=== PATIENT | female | born 1935 | race Two or more races ===

== ENCOUNTER → 2017-05-05 | Outpatient (CLI) | payer MEDICARE, OTHER ==
[~2017-05-05] VITALS: Ht 160 cm; Wt 72.5 kg
[~2017-05-05] MED LIST: ADV250 IH; ASPI-556 PO; AUD NEB; AZELASTINE; BENZ-51 PO; CARV6 PO; FLUT16H NASAL; FURO20 PO; KDUR20 PO; LEVO25TA4 PO; LIDO700A30 TP; LIDOCAINE HCL 4% 50 ML SOLUTION TP ONE; LORA10TA7 PO; LOSA25TA21 PO; MET500 PO; MONT10TA21 PO; MUPIROCIN CALCIUM 2% 22 GM OINTMENT TP ONE; PRAV40TA4 PO; SUVO10TA PO; TRAM50TA4 PO; UMEC62.5 IH
[2017-05-05 13:33] VITALS: BP 152/74
== END | disposition home or self-care (01) ==
LOC: SRCNTR 13:19
PROVIDERS: ATTEND Internal Medicine
DX: J44.0 Chronic obstructive pulmonary disease with (acute) lower respiratory infection (principal); C7A.090 Malignant carcinoid tumor of the bronchus and lung; C41.0 Malignant neoplasm of bones of skull and face; E03.9 Hypothyroidism, unspecified; I10 Essential (primary) hypertension; J18.9 Pneumonia, unspecified organism; Z79.82 Long term (current) use of aspirin; Z88.0 Allergy status to penicillin; Z88.2 Allergy status to sulfonamides
CPT/HCPCS: G0463

== ENCOUNTER → 2017-06-20 | Outpatient (CLI) | payer MEDICARE, OTHER ==
[~2017-06-20] VITALS: Ht 160 cm; Wt 73.0 kg
[~2017-06-20] MED LIST changes: -LIDOCAINE HCL 4% 50 ML SOLUTION TP ONE; -MUPIROCIN CALCIUM 2% 22 GM OINTMENT TP ONE
[2017-06-20 13:24] VITALS: BP 182/102
== END | disposition home or self-care (01) ==
LOC: SRCNTR 12:56
PROVIDERS: ATTEND Internal Medicine
DX: C34.12 Malignant neoplasm of upper lobe, left bronchus or lung (principal); C44.40 Unspecified malignant neoplasm of skin of scalp and neck; J44.0 Chronic obstructive pulmonary disease with (acute) lower respiratory infection; J18.9 Pneumonia, unspecified organism; I10 Essential (primary) hypertension; E03.9 Hypothyroidism, unspecified; J15.1 Pneumonia due to Pseudomonas
CPT/HCPCS: G0463

== ENCOUNTER → 2017-07-05 | Outpatient (CLI) | payer MEDICARE, OTHER ==
[~2017-07-05] VITALS: Ht 160 cm; Wt 73.0 kg
[2017-07-05 14:51] VITALS: BP 170/80
== END | disposition home or self-care (01) ==
LOC: SRCNTR 14:40
PROVIDERS: ATTEND Internal Medicine
DX: J44.0 Chronic obstructive pulmonary disease with (acute) lower respiratory infection (principal); J18.9 Pneumonia, unspecified organism; I10 Essential (primary) hypertension; E03.9 Hypothyroidism, unspecified; C7A.090 Malignant carcinoid tumor of the bronchus and lung; C44.42 Squamous cell carcinoma of skin of scalp and neck; Z79.82 Long term (current) use of aspirin; Z88.0 Allergy status to penicillin; Z88.2 Allergy status to sulfonamides
CPT/HCPCS: G0463

== ENCOUNTER → 2017-09-14 | Outpatient (CLI) | payer MEDICARE, OTHER ==
[~2017-09-14] VITALS: Ht 160 cm; Wt 75.0 kg
[~2017-09-14] MED LIST changes: +ALBU90AE PO; +CALC-1038 PO; +CLIN300C3 PO; +PROM5SYR2 PO; +UMEC62.5 PO
[2017-09-14 13:39] VITALS: BP 155/66
== END | disposition home or self-care (01) ==
LOC: SRCNTR 13:29
PROVIDERS: ATTEND Internal Medicine
DX: C7A.090 Malignant carcinoid tumor of the bronchus and lung (principal); E03.9 Hypothyroidism, unspecified; I10 Essential (primary) hypertension; J18.9 Pneumonia, unspecified organism; J44.0 Chronic obstructive pulmonary disease with (acute) lower respiratory infection; Z79.82 Long term (current) use of aspirin; Z88.0 Allergy status to penicillin; Z88.2 Allergy status to sulfonamides; Z98.890 Other specified postprocedural states
CPT/HCPCS: G0463

== ENCOUNTER → 2017-10-26 | Outpatient (CLI) | payer MEDICARE, OTHER ==
[~2017-10-26] VITALS: Ht 160 cm; Wt 75.0 kg
[~2017-10-26] MED LIST changes: -CLIN300C3 PO
[2017-10-26 14:12] VITALS: BP 141/68
== END | disposition home or self-care (01) ==
LOC: SRCNTR 14:02
PROVIDERS: ATTEND Internal Medicine
DX: C7A.090 Malignant carcinoid tumor of the bronchus and lung (principal); I10 Essential (primary) hypertension; E03.9 Hypothyroidism, unspecified; J18.9 Pneumonia, unspecified organism; Z79.82 Long term (current) use of aspirin; Z88.0 Allergy status to penicillin; Z88.2 Allergy status to sulfonamides; Z98.890 Other specified postprocedural states
CPT/HCPCS: G0463

== ENCOUNTER → 2018-02-10 | Outpatient (CLI) | payer MEDICARE, OTHER ==
[~2018-02-10] MED LIST changes: +LOSA25TA16 PO; -LOSA25TA21 PO
[2018-02-10 11:24] VITALS: BP 157/67
== END | disposition home or self-care (01) ==
LOC: SRCNTR 10:54
PROVIDERS: ATTEND Internal Medicine
DX: C7A.090 Malignant carcinoid tumor of the bronchus and lung (principal); I10 Essential (primary) hypertension; E03.9 Hypothyroidism, unspecified
CPT/HCPCS: G0463

== ENCOUNTER → 2018-02-28 | Outpatient (CLI) | payer MEDICARE, OTHER | END | disposition home or self-care (01) | LOC: RADPV 09:57 | PROVIDERS: ATTEND Orthopaedic Surgery Hand Surgery | DX: Z47.1 Aftercare following joint replacement surgery (principal); Z96.612 Presence of left artificial shoulder joint ==

== ENCOUNTER → 2018-05-02 | Outpatient (CLI) | payer MEDICARE, OTHER ==
[~2018-05-02] VITALS: Ht 160 cm; Wt 76.5 kg
[~2018-05-02] MED LIST changes: -LOSA25TA16 PO; +LOSA25TA41 PO
[2018-05-02 10:03] VITALS: BP 153/68
== END | disposition home or self-care (01) ==
LOC: SRCNTR 09:54
PROVIDERS: ATTEND Internal Medicine
DX: J18.9 Pneumonia, unspecified organism (principal); R50.9 Fever, unspecified; I10 Essential (primary) hypertension; E03.9 Hypothyroidism, unspecified; Z88.0 Allergy status to penicillin; Z88.8 Allergy status to other drugs, medicaments and biological substances
CPT/HCPCS: G0463

== ENCOUNTER → 2018-08-08 | Outpatient (CLI) | payer MEDICARE, OTHER ==
[~2018-08-08] VITALS: Ht 160 cm; Wt 78.0 kg
[2018-08-08 11:05] VITALS: BP 147/60
== END | disposition home or self-care (01) ==
LOC: SRCNTR 10:43
PROVIDERS: ATTEND Internal Medicine
DX: I10 Essential (primary) hypertension (principal); E03.9 Hypothyroidism, unspecified
CPT/HCPCS: G0463

== ENCOUNTER → 2019-07-10 | Outpatient (CLI) | payer MEDICARE, OTHER ==
[~2019-07-10] VITALS: Ht 160 cm; Wt 70.5 kg
[~2019-07-10] MED LIST changes: +BETA1TAB18 PO; -LOSA25TA41 PO; +LOSA25TA71 PO; -MET500 PO; +METH500T7 PO
[2019-07-10 10:39] VITALS: BP 135/55
== END | disposition home or self-care (01) ==
LOC: SRCNTR 10:38
PROVIDERS: ATTEND Internal Medicine
DX: D3A.090 Benign carcinoid tumor of the bronchus and lung (principal); R91.8 Other nonspecific abnormal finding of lung field; I10 Essential (primary) hypertension; E03.9 Hypothyroidism, unspecified; C44.40 Unspecified malignant neoplasm of skin of scalp and neck
CPT/HCPCS: G0463

== ENCOUNTER → 2020-08-05 | Outpatient (CLI) | payer MEDICARE, OTHER ==
[~2020-08-05] VITALS: Ht 160 cm; Wt 78.0 kg
[~2020-08-05] MED LIST changes: -ADV250 IH; +FLUT1DIS6 IH; -KDUR20 PO; +LOSA25TA21 PO; -LOSA25TA71 PO; +METH-659 PO; -METH500T7 PO; +MONT-35 PO; -MONT10TA21 PO; +PROM473S4 PO; -PROM5SYR2 PO; +TELM80TA2 PO
[2020-08-05 11:19] VITALS: BP 134/58
== END | disposition home or self-care (01) ==
LOC: SRCNTR 10:39
PROVIDERS: ATTEND Internal Medicine
DX: C44.42 Squamous cell carcinoma of skin of scalp and neck (principal); D3A.090 Benign carcinoid tumor of the bronchus and lung; I10 Essential (primary) hypertension; E03.9 Hypothyroidism, unspecified
CPT/HCPCS: G0463

== ENCOUNTER → 2021-03-13 | Outpatient (CLI) | payer MEDICARE, OTHER ==
[~2021-03-13] MED LIST changes: -BENZ-51 PO; +BENZ-70 PO; -LOSA25TA21 PO
[2021-03-13 10:44] VITALS: BP 130/60
== END | disposition home or self-care (01) ==
LOC: SRCNTR 10:33
PROVIDERS: ATTEND Internal Medicine
DX: I10 Essential (primary) hypertension (principal); E03.9 Hypothyroidism, unspecified; J40 Bronchitis, not specified as acute or chronic; Z85.89 Personal history of malignant neoplasm of other organs and systems
CPT/HCPCS: G0463; Z7500

== ENCOUNTER → 2021-04-28 | Outpatient (CLI) | payer MEDICARE, OTHER ==
[~2021-04-28] VITALS: Ht 160 cm; Wt 74.5 kg
[2021-04-28 11:16] VITALS: BP 132/54
== END | disposition home or self-care (01) ==
LOC: SRCNTR 10:19
PROVIDERS: ATTEND Internal Medicine
DX: I10 Essential (primary) hypertension (principal); E03.9 Hypothyroidism, unspecified; J40 Bronchitis, not specified as acute or chronic
CPT/HCPCS: G0463; Z7500

== ENCOUNTER → 2021-10-13 | Outpatient (CLI) | payer MEDICARE, OTHER ==
[~2021-10-13] VITALS: Ht 160 cm; Wt 78.9 kg
[2021-10-13 12:22] VITALS: BP 124/48
== END | disposition home or self-care (01) ==
LOC: SRCNTR 11:48
PROVIDERS: ATTEND Internal Medicine
DX: I10 Essential (primary) hypertension (principal); E03.9 Hypothyroidism, unspecified; C44.42 Squamous cell carcinoma of skin of scalp and neck; C34.30 Malignant neoplasm of lower lobe, unspecified bronchus or lung; J40 Bronchitis, not specified as acute or chronic
CPT/HCPCS: G0463

== ENCOUNTER → 2022-01-19 | Outpatient (CLI) | payer MEDICARE, OTHER ==
[~2022-01-19] VITALS: Ht 160 cm; Wt 78.0 kg
[2022-01-19 11:27] VITALS: BP 108/62
== END | disposition home or self-care (01) ==
LOC: SRCNTR 10:52
PROVIDERS: ATTEND Internal Medicine
DX: I10 Essential (primary) hypertension (principal); E03.9 Hypothyroidism, unspecified; J40 Bronchitis, not specified as acute or chronic; C54.1 Malignant neoplasm of endometrium
CPT/HCPCS: G0463; Z7500

== ENCOUNTER → 2022-05-17 | Outpatient (CLI) | payer MEDICARE, OTHER ==
[~2022-05-17] VITALS: Ht 160 cm; Wt 74.0 kg
[~2022-05-17] MED LIST changes: -FLUT16H NASAL; +FLUT16SP NASAL; +TRAM-559 PO; -TRAM50TA4 PO; +[UNRECOGNIZED DRUG - CODE] PO
[2022-05-17 11:20] VITALS: BP 139/59
== END | disposition home or self-care (01) ==
LOC: SRCNTR 10:58
PROVIDERS: ATTEND Internal Medicine
DX: I10 Essential (primary) hypertension (principal); E03.9 Hypothyroidism, unspecified; J40 Bronchitis, not specified as acute or chronic; R91.8 Other nonspecific abnormal finding of lung field; C44.42 Squamous cell carcinoma of skin of scalp and neck
CPT/HCPCS: G0463; Z7500

== ENCOUNTER → 2022-06-16 | Outpatient (CLI) | payer MEDICARE, OTHER ==
[~2022-06-16] VITALS: Ht 161.3 cm; Wt 74.5 kg
[2022-06-16 11:11] VITALS: BP 139/67
== END | disposition home or self-care (01) ==
LOC: SRCNTR 10:43
PROVIDERS: ATTEND Internal Medicine
DX: Z09 Encounter for follow-up examination after completed treatment for conditions other than malignant neoplasm (principal); R91.8 Other nonspecific abnormal finding of lung field; I10 Essential (primary) hypertension; E03.9 Hypothyroidism, unspecified; J40 Bronchitis, not specified as acute or chronic; R59.0 Localized enlarged lymph nodes; L92.9 Granulomatous disorder of the skin and subcutaneous tissue, unspecified; C7A.090 Malignant carcinoid tumor of the bronchus and lung; C44.42 Squamous cell carcinoma of skin of scalp and neck
CPT/HCPCS: G0463; Z7500

== ENCOUNTER → 2022-08-05 | Outpatient (CLI) | payer MEDICARE, OTHER ==
[~2022-08-05] VITALS: Ht 161.3 cm; Wt 70.6 kg
[~2022-08-05] MED LIST changes: +BENZ-227 PO; -BENZ-70 PO; +FLUT1BLS3 PO; +MULT-660 PO; +NIFE-129 PO
[2022-08-05 10:05] VITALS: BP 132/63
== END | disposition home or self-care (01) ==
LOC: SRCNTR 09:54
PROVIDERS: ATTEND Internal Medicine
DX: I10 Essential (primary) hypertension (principal); E03.9 Hypothyroidism, unspecified; J40 Bronchitis, not specified as acute or chronic; R91.8 Other nonspecific abnormal finding of lung field; C44.42 Squamous cell carcinoma of skin of scalp and neck
CPT/HCPCS: G0463; Z7500

== ENCOUNTER → 2022-12-07 | Outpatient (CLI) | payer MEDICARE, OTHER ==
[~2022-12-07] VITALS: Ht 160 cm; Wt 74.0 kg
[~2022-12-07] MED LIST changes: +ALBU2.5V39 NEB; -AUD NEB; -AZELASTINE; -BENZ-227 PO; +CARV3 PO; -FLUT1DIS6 IH; -TRAM-559 PO; -UMEC62.5 IH; -UMEC62.5 PO
[2022-12-07 10:10] VITALS: BP 141/59; PULSE 81; RESP 15; TEMP 97.6; O2SAT 91
== END | disposition home or self-care (01) ==
LOC: SRCNTR 09:30
PROVIDERS: ATTEND Internal Medicine
DX: R91.8 Other nonspecific abnormal finding of lung field (principal); I10 Essential (primary) hypertension; E03.9 Hypothyroidism, unspecified; J40 Bronchitis, not specified as acute or chronic
CPT/HCPCS: G0463

== ENCOUNTER → 2023-01-06 | Outpatient (CLI) | payer MEDICARE, OTHER ==
[~2023-01-06] VITALS: Ht 160 cm; Wt 75.0 kg
[~2023-01-06] MED LIST changes: +APIX5TAB PO
[2023-01-06 10:17] VITALS: BP 117/52; PULSE 95; RESP 16; TEMP 97; O2SAT 95
== END | disposition home or self-care (01) ==
LOC: SRCNTR 09:40
PROVIDERS: ATTEND Internal Medicine
DX: R91.8 Other nonspecific abnormal finding of lung field (principal); I10 Essential (primary) hypertension; E03.9 Hypothyroidism, unspecified; C44.42 Squamous cell carcinoma of skin of scalp and neck; J40 Bronchitis, not specified as acute or chronic; Z79.899 Other long term (current) drug therapy
CPT/HCPCS: G0463; Z7500

== ENCOUNTER → 2023-06-27 | Outpatient (CLI) | payer MEDICARE, OTHER ==
[~2023-06-27] VITALS: Ht 160 cm; Wt 74.0 kg
[~2023-06-27] MED LIST changes: +APIX2.5T PO; +FLUT1BLS15 IH; +PRED-554 PO
[2023-06-27 11:08] VITALS: BP 136/60; PULSE 87; RESP 18; TEMP 98.4; O2SAT 97
== END | disposition home or self-care (01) ==
LOC: SRCNTR 10:52
PROVIDERS: ATTEND Internal Medicine
DX: I10 Essential (primary) hypertension (principal); J18.9 Pneumonia, unspecified organism; E78.5 Hyperlipidemia, unspecified; J44.9 Chronic obstructive pulmonary disease, unspecified; E03.9 Hypothyroidism, unspecified; J40 Bronchitis, not specified as acute or chronic; Z79.899 Other long term (current) drug therapy; Z88.8 Allergy status to other drugs, medicaments and biological substances
CPT/HCPCS: G0463

== ENCOUNTER → 2023-09-22 | Outpatient (CLI) | payer MEDICARE, OTHER ==
[2023-09-22 10:35] VITALS: BP 166/72; PULSE 102; RESP 17; TEMP 98; O2SAT 95
== END | disposition home or self-care (01) ==
LOC: SRCNTR 10:12
PROVIDERS: ATTEND Internal Medicine
DX: J44.9 Chronic obstructive pulmonary disease, unspecified (principal); R91.8 Other nonspecific abnormal finding of lung field; I10 Essential (primary) hypertension; E03.9 Hypothyroidism, unspecified; J40 Bronchitis, not specified as acute or chronic; C80.1 Malignant (primary) neoplasm, unspecified; Z79.899 Other long term (current) drug therapy
CPT/HCPCS: G0463